=== PATIENT | female | born 1970 | race Caucasian/White ===

== ENCOUNTER 2018-09-04 15:46 | Emergency (ER) | payer MEDICAID, OTHER ==
[2018-09-04 15:46] VITALS: BMI 28.0
[2018-09-04 15:59] VITALS: BP 126/84; PULSE 67; RESP 18; TEMP 98.9; O2SAT 97
[2018-09-04] MEDS ORDERED: Dexamethasone 4 mg/1 ml IM STA (16:56)
--- NOTE | 2018-09-04 17:49 | C.PDOC ---
History Of Present Illness Patient is a 47 year old female, with no significant medical history, who presents to the ED complaining of severe right hip pain that has progressively worsened over the past few months. Patient states that she has pain with palpation and walking and states that it worsens when she goes from a sedentary to standing position. She describes the pain as needles shooting out and pulsing when laying flat. She denies any falls, trauma, CP, SOB, weakness, numbness, back pain. Time Seen by Provider: 09/04/18 16:24 Chief Complaint (Nursing): Hip Pain History Per: Patient History/Exam Limitations: no limitations Onset/Duration Of Symptoms: Other (several months) Current Symptoms Are (Timing): Still Present Recent travel outside of the [place]: No Additional History Per: Patient Past Medical History Reviewed: Historical Data, Nursing Documentation, Vital Signs Vital Signs: Last Vital Signs Temp 98.9 F 09/04/18 15:56 Pulse 67 09/04/18 15:56 Resp 18 09/04/18 15:56 BP 126/84 09/04/18 15:56 Pulse Ox 97 09/04/18 15:56 Primary Care Provider: Joon Abdi Jr. - Medical History PMH: Anemia, Anxiety, Gastritis Denies: Chronic Kidney Disease Surgical History: Cholecystectomy (2003) Family History: States: No Known Family Hx - Social History Hx Alcohol Use: No Hx Substance Use: No - Immunization History Hx Tetanus Toxoid Vaccination: No Hx Influenza Vaccination: No Hx Pneumococcal Vaccination: No Review Of Systems Except As Marked, All Systems Reviewed And Found Negative. Cardiovascular: Negative for: Chest Pain Respiratory: Negative for: Shortness of Breath Musculoskeletal: Positive for: Leg Pain (right hip pain ). Negative for: Back Pain Neurological: Negative for: Weakness, Numbness Physical Exam - Physical Exam Appears: Non-toxic, No Acute Distress Skin: Normal Color, Warm, Dry, No Rash Head: Atraumatic, Normacephalic Eye(s): bilateral: Normal Inspection, PERRL, EOMI Nose: Normal, No Discharge Oral Mucosa: Moist Throat: No Erythema, No Exudate Neck: Normal ROM, No Midline Cervical Tenderness, No Paracervical Tenderness Chest: Symmetrical, No Tenderness Cardiovascular: Rhythm Regular Respiratory: Normal Breath Sounds, No Rales, No Rhonchi Gastrointestinal/Abdominal: Normal Exam, Bowel Sounds, Soft, No Tenderness Back: No Vertebral Tenderness, No Paraspinal Tenderness Extremity: Normal ROM (right hip), Tenderness (moderate right hip tenderness ), Swelling (right hip mild swelling at bursa), Other (right knee and right ankle normal ) Neurological/Psych: Oriented x3, Normal Motor Gait: Steady ED Course And Treatment O2 Sat by Pulse Oximetry: 97 (on RA) Pulse Ox Interpretation: Normal Disposition - Disposition Referrals: Keiry Tai MD [Staff Provider] - Disposition: HOME/ ROUTINE Disposition Time: 19:22 Condition: GOOD Additional Instructions: Follow up with the medical doctor within 1-2 days. 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 - Scribe Statement The provider has reviewed the documentation as recorded by the Danicaibfavio Enamorado
[2018-09-04] MEDS ORDERED: Lidocaine 5% Patch TD STA (18:40)
[2018-09-04] MEDS ORDERED: Lidocaine 5% Patch TD ONE (18:58)
--- NOTE | 2018-09-05 08:37 | RAD ---
PROCEDURE: Right Hip Radiographs. HISTORY: hip pain COMPARISON: None. TECHNIQUE: 2 views obtained. FINDINGS: BONES: Normal. No fracture. JOINTS: Normal. SOFT TISSUES: Normal. OTHER FINDINGS: None. IMPRESSION: Normal radiographs of right hip.
== END 2018-09-04 19:44 | disposition home or self-care (01) ==
LOC: C.ER 15:46
DX: M71.551 Other bursitis, not elsewhere classified, right hip (principal); M25.551 Pain in right hip
CPT/HCPCS: 73502; 81025; 96372; 99284; J1100; J1885